=== PATIENT | female | born 1985 | race Caucasian/White ===

== ENCOUNTER 2018-08-31 18:49 | Emergency (ER) | payer OTHER ==
[~2018-08-31] VITALS: Ht 172.7 cm; Wt 72.6 kg
== END 2018-08-31 22:23 | disposition home or self-care (01) ==
LOC: ER 18:49
DX: D64.9 Anemia, unspecified (principal)

== ENCOUNTER 2019-05-06 06:40 | Day surgery (SDC) | payer OTHER | END 2019-05-06 13:35 | disposition home or self-care (01) | LOC: CIR.AMB 06:40 | DX: D06.7 Carcinoma in situ of other parts of cervix (principal) ==

== ENCOUNTER 2019-10-17 01:14 | Emergency (ER) | payer OTHER ==
[~2019-10-17] VITALS: Ht 172.7 cm; Wt 88.5 kg
[2019-10-17] MEDS ORDERED: IRON1TAB4 PO (05:10)
== END 2019-10-17 05:40 | disposition home or self-care (01) ==
LOC: ER 01:14
DX: N93.8 Other specified abnormal uterine and vaginal bleeding (principal); D25.2 Subserosal leiomyoma of uterus

== ENCOUNTER 2020-02-06 15:13 | Emergency (ER) | payer OTHER ==
[~2020-02-06] VITALS: Ht 175.3 cm; Wt 86.2 kg
[~2020-02-06 15:13] MED LIST: IRON1TAB4 PO
== END 2020-02-06 18:53 | disposition home or self-care (01) ==
LOC: ER 15:13
DX: O20.8 Other hemorrhage in early pregnancy (principal); Z3A.01 Less than 8 weeks gestation of pregnancy

== ENCOUNTER 2020-02-09 01:36 | Emergency (ER) | payer OTHER ==
[~2020-02-09] VITALS: Ht 175.3 cm; Wt 86.2 kg
== END 2020-02-09 08:02 | disposition home or self-care (01) ==
LOC: ER 01:36
DX: O03.6 Delayed or excessive hemorrhage following complete or unspecified spontaneous abortion (principal); Z3A.01 Less than 8 weeks gestation of pregnancy

== ENCOUNTER 2024-06-21 11:15 | Emergency (ER) | payer OTHER ==
[~2024-06-21] VITALS: Ht 175.3 cm; Wt 93.0 kg
[2024-06-21] MEDS ORDERED: BUPROPION HCL75 MG PO (11:32)
[2024-06-21] MEDS ORDERED: TRAZODONE HCL100 MG PO (11:32)
[2024-06-21] MEDS ORDERED: CLONAZEPAM0.5 MG PO (11:33)
[2024-06-21] MEDS ORDERED: LOSARTAN POTAS100 MG PO (11:33)
[2024-06-21] MEDS ORDERED: ONDANSETRON HCL 2 MG/ML VIAL IV ONE (14:00)
[2024-06-21] MEDS ORDERED: FAMOTIDINE/PF 20 MG/2 ML VIAL IV PUSH ONE (14:00)
[2024-06-21] MEDS ORDERED: FAMOTIDINE/PF 20 MG/2 ML VIAL ONE (14:46)
[2024-06-21] MEDS ORDERED: ONDANSETRON HCL 2 MG/ML VIAL ONE (14:46)
[2024-06-21 15:18] LABS: MEAN CORPUSCULAR HGB CONC 33.4 g/dl (32.0-36.0); PLATELET COUNT 403 K/uL (150-450); RED BLOOD COUNT 3.98 M/uL (4.00-6.00); RED CELL DISTRIBUTION WIDTH 18.2 % (11.5-14.5)
[2024-06-21 15:30] LABS: URINE APPEARANCE Clear; URINE BILIRRUBIN Negative (NEGATIVE); URINE BLOOD Negative; URINE COLOR Yellow; URINE GLUCOSE Negative (NEGATIVE); URINE LEUKOCYTE Negative; URINE NITRATE Negative; URINE PROTEIN Negative (NEGATIVE); URINE UROBILINOGEN 0.2 E.U./dl
[2024-06-21 15:34] LABS: URINE BACTERIA 463.8 uL (0.0-1933); URINE EPITHELIAL CELLS 21.6 uL (0.0-38.8); URINE RBC 2.6 uL (0.0-20.8); URINE WBC 6.6 uL (0.0-23.2)
[2024-06-21 15:37] LABS: MEAN CORPUSCULAR HEMOGLOBIN 22.1 pg (27.00-32.0)
[2024-06-21 15:38] LABS: HEMATOCRIT 26.3 % (36.0-45.00); HEMOGLOBIN 8.8 g/dL (12.0-15.00); MEAN CELL VOLUME 66.1 fL (80.00-100.00)
[2024-06-21 15:58] LABS: INR 1.05; PARTIAL THROMBOPLASTIN TIME 24.7 SECONDS (22.0-34.0); PROTHROMBIN TIME 11.4 SECONDS (9.0-11.5)
[2024-06-21 16:00] LABS: URINE KETONE 40 (NEGATIVE)
[2024-06-21 16:04] LABS: BILIRUBIN TOTAL 0.42 mg/dL (0.3-1.2); CALCIUM 9.5 mg/dL (8.5-10.1); CREATININE SERUM 0.76 mg/dL (0.55-1.02); GFR 85.63; GLOBULINA 3.8 G/DL (2.4-3.5); POTASSIUM 3.67 mEq/L (3.5-5.1); TOTAL PROTEIN 7.8 gm/dL (6.4-8.2)
[2024-06-21] MEDS ORDERED: BUTALB/ACETAMINOPHEN/CAFFEINE 1 TAB TABLET PO ONE ×2 (16:45→17:10)
== END 2024-06-21 19:13 | disposition home or self-care (01) ==
LOC: ER 11:17
PROVIDERS: Emergency Medicine
DX: K52.89 Other specified noninfective gastroenteritis and colitis (principal); D25.9 Leiomyoma of uterus, unspecified; D64.9 Anemia, unspecified; I10 Essential (primary) hypertension

== ENCOUNTER 2024-08-23 08:36 | Inpatient (IN) | payer OTHER ==
[~2024-08-23] VITALS: Ht 274.3 cm; Wt 93.0 kg
[~2024-08-23 08:36] MED LIST changes: +BUPROPION HCL75 MG PO; +CLONAZEPAM0.5 MG PO; +LOSARTAN POTAS100 MG PO; +TRAZODONE HCL100 MG PO
[2024-08-26] MEDS ORDERED: METRONIDAZOLE/SODIUM CHLORIDE 500 MG/100 ML PIGGYBACK IV ONE (16:24)
[2024-08-26] MEDS ORDERED: POVIDONE-IODINE 118 ML BOTT TOP ONE (16:24)
[2024-08-26] MEDS ORDERED: CEFAZOLIN SODIUM 1,000 MG VIAL ONE (16:25)
[2024-08-26] MEDS ORDERED: HEMOSTATIC MATRIX 1 KIT KIT TOP ONE (17:32)
[2024-08-26] MEDS ORDERED: SURGIFLO APPLICATOR 1 EACH APPL TOP ONE (17:32)
[2024-08-26] MEDS ORDERED: ONDANSETRON HCL 2 MG/ML VIAL IV PRN (18:30)
[2024-08-26] MEDS ORDERED: RINGERS SOLUTION,LACTATED 1,000 ML IV SCH (18:30)
[2024-08-26] MEDS ORDERED: MORPHINE SULFATE 4 MG/ML CARTRIDGE IV PRN (18:30)
[2024-08-26] MEDS ORDERED: LIDOCAINE HCL 1%/EPINEPHRINE 20ML VIAL IJ ONE (18:45)
[2024-08-26] MEDS ORDERED: CEFAZOLIN SODIUM 1,000 MG VIAL IV ONE (18:45)
[2024-08-26] MEDS ORDERED: BUPIVACAINE HCL 30 ML VIAL IJ ONE (18:45)
[2024-08-26] MEDS ORDERED: KETOROLAC TROMETHAMINE 30 MG VIAL ONE (19:42)
[2024-08-26] MEDS ORDERED: MORPHINE SULFATE 4 MG/ML VIAL IV ONE ×2 (20:25→21:25)
[2024-08-26] MEDS ORDERED: FAMOTIDINE/PF 20 MG/2 ML VIAL IV PUSH SCH (21:00)
[2024-08-26] MEDS ORDERED: DOCUSATE SODIUM 100MG CAP PO SCH (21:00)
[2024-08-26] MEDS ORDERED: SIMETHICONE 125 MG CAPSULE PO SCH (21:00)
[2024-08-26] MEDS ORDERED: FAMOTIDINE/PF 20 MG/2 ML VIAL ONE (21:53)
[2024-08-26 22:10] LABS: HEMATOCRIT 31.4 % (36.0-45.00); HEMOGLOBIN 10.5 g/dL (12.0-15.00); MEAN CELL VOLUME 73.5 fL (80.00-100.00); MEAN CORPUSCULAR HEMOGLOBIN 24.6 pg (27.00-32.0); MEAN CORPUSCULAR HGB CONC 33.5 g/dl (32.0-36.0); PLATELET COUNT 385 K/uL (150-450); RED BLOOD COUNT 4.27 M/uL (4.00-6.00)
[2024-08-26 22:11] LABS: RED CELL DISTRIBUTION WIDTH 23.4 % (11.5-14.5)
[2024-08-26 22:24] LABS: ALBUMIN 3.5 gm/dL (3.4-5.0); CREATININE SERUM 0.74 mg/dL (0.55-1.02); GFR 88.31; PHOSPHOROUS 3.6 mg/dL (2.5-4.9); POTASSIUM 4.65 mEq/L (3.5-5.1)
[2024-08-26 22:27] VITALS: BP 118/67; O2SAT 92
[2024-08-27] VITALS: BP 112/68
[2024-08-27] MEDS ORDERED: KETOROLAC TROMETHAMINE 30 MG VIAL IV SCH (01:00)
[2024-08-27] MEDS ORDERED: CEFAZOLIN SODIUM 1,000 MG VIAL IV SCH (01:00)
[2024-08-27] MEDS ORDERED: GABAPENTIN 300 MG CAPSULE PO SCH (01:00)
[2024-08-27 05:00] VITALS: BP 109/69
[2024-08-27 07:11] LABS: HEMATOCRIT 31.6 % (36.0-45.00); HEMOGLOBIN 10.3 g/dL (12.0-15.00); MEAN CELL VOLUME 75.3 fL (80.00-100.00); MEAN CORPUSCULAR HEMOGLOBIN 24.5 pg (27.00-32.0); MEAN CORPUSCULAR HGB CONC 32.5 g/dl (32.0-36.0); PLATELET COUNT 364 K/uL (150-450); RED BLOOD COUNT 4.19 M/uL (4.00-6.00); RED CELL DISTRIBUTION WIDTH 22.7 % (11.5-14.5)
[2024-08-27 07:22] LABS: ALBUMIN 3.1 gm/dL (3.4-5.0); CALCIUM 8.5 mg/dL (8.5-10.1); CREATININE SERUM 0.76 mg/dL (0.55-1.02); GFR 85.63; PHOSPHOROUS 4.3 mg/dL (2.5-4.9); POTASSIUM 4.17 mEq/L (3.5-5.1)
[2024-08-27 08:51] VITALS: BP 135/60; O2SAT 100
[2024-08-27] MEDS ORDERED: ENOXAPARIN SODIUM 40 MG/0.4 ML SYRINGE SUBCUTANEO SCH (09:00)
[2024-08-27] MEDS ORDERED: CELECOXIB 200 MG CAPSULE PO SCH (09:00)
== END 2024-08-27 12:24 | disposition home or self-care (01) | DRG 743 ==
LOC: SURH 08-26 09:15 → O/R 08-26 11:51 → OB/GYN 08-26 20:10
PROVIDERS: Obstetrics & Gynecology Gynecologic Oncology; ADMIT Obstetrics & Gynecology; ATTEND Obstetrics & Gynecology
PROC: 0UT74ZZ Resection of Bilateral Fallopian Tubes, Percutaneous Endoscopic Approach (ICD-10-PCS; 2024-08-26)
PROC: 0USG4ZZ Reposition Vagina, Percutaneous Endoscopic Approach (ICD-10-PCS; 2024-08-26)
PROC: 0UT94ZZ Resection of Uterus, Percutaneous Endoscopic Approach (ICD-10-PCS; principal; 2024-08-26 09:15)
DX: D25.0 Submucous leiomyoma of uterus (principal); D64.9 Anemia, unspecified; N93.8 Other specified abnormal uterine and vaginal bleeding; N93.9 Abnormal uterine and vaginal bleeding, unspecified